=== PATIENT | male | born 1985 | race Two or more races ===

== ENCOUNTER 2024-07-30 08:02 | Emergency (ER) | payer MEDICAID, OTHER ==
[~2024-07-30] VITALS: Ht 170.2 cm; Wt 70.0 kg
[2024-07-30 08:05] VITALS: BP 150/97; PULSE 100; RESP 20; O2SAT 96
== END 2024-07-30 08:15 | disposition left against medical advice (07) ==
LOC: EDBD 08:02 → ER 08:02
DX: F25.9 Schizoaffective disorder, unspecified (principal); F17.210 Nicotine dependence, cigarettes, uncomplicated; F15.90 Other stimulant use, unspecified, uncomplicated